=== PATIENT | male | born 1975 | race Caucasian/White ===

== ENCOUNTER → 2017-06-30 | Outpatient (CLI) | payer OTHER ==
--- NOTE | 2017-06-30 17:08 | DIAGNOSTIC IMAGING REPORT ---
R HIP UNILATERAL 2 VIEWS HISTORY: 42 years-old Male CHRONIC HIP PAIN LIMITED RANGE OF MOTION chronic right hip pain COMPARISON: None available TECHNIQUE: 3 views of the right hip FINDINGS: There is mild subchondral sclerosis involving the femoral acetabular joint with minimal marginal spurring. No significant joint space narrowing, acute fracture or dislocation. No evidence of avascular necrosis. The imaged right hemipelvis appears intact. Bone mineralization is within normal limits. No opaque foreign body. IMPRESSION: No acute fracture or dislocation. The above report was generated using voice recognition software. It may contain grammatical, syntax or spelling errors. Electronically signed by: Charanjit Valenzuela M.D. 06/30/2017 5:07 PM Dictated Date/Time: 06/30/2017 5:05 PM
== END | disposition home or self-care (01) ==
LOC: C.RAD1850 16:48
DX: M25.551 Pain in right hip (principal); G89.29 Other chronic pain